=== PATIENT | male | born 1940 | race Caucasian/White ===

== ENCOUNTER 2020-12-14 08:56 | Inpatient (IN) ==
[2020-12-14 09:46] LABS: Hemoglobin 6.2 g/dL (12.9-16.9); Nucleated Red Blood Cells 0.5 /100 WBC (0)
[2020-12-14 09:47] LABS: Eosinophils # 0.2 K/mcL (0.0-0.6); Hematocrit 23.1 % (37.5-50.1); Mean Corpuscular HGB Conc 26.8 g/dL (31.6-35.5); Mean Corpuscular Hemoglobin 18.2 pg (28.0-33.3); Mean Corpuscular Volume 67.7 fL (83.0-100.0); Mean Platelet Volume 9.7 fL (9.4-12.4); Platelet Count 308 K/mcL (140-400); Red Blood Count 3.41 M/mcL (4.19-5.50); Red Cell Distribution Width 18.1 % (11.5-14.5); White Blood Count 7.4 K/mcL (4.3-11.1)
[2020-12-14 09:53] LABS: INR 1.1; Prothrombin Time 12.7 Seconds (9.4-12.1)
[2020-12-14 09:55] LABS: Activated Partial Thrombo Time 27.4 Seconds (26.0-36.0)
[2020-12-14 10:05] LABS: BUN/Creatinine Ratio 18 (6-26); Blood Urea Nitrogen 21 mg/dL (8-23); Calcium 9.1 mg/dL (8.6-10.3); Carbon Dioxide 31 mEq/L (23-29); Chloride 100 mEq/L (98-107); Glucose 130 mg/dL (70-105); Osmolality,Calculated 287 (280-300); Potassium 4.1 mEq/L (3.5-5.1); Sodium 136 mEq/L (136-145); eGFR For African Americans > 60 (> 60); eGFR For Non-African Americans 59 (> 60)
[2020-12-14 10:17] LABS: Basophils # 0.4 K/mcL (0.0-0.2); Lymphocytes # 0.9 K/mcL (0.6-4.6); Monocytes # 0.4 K/mcL (0.0-1.3); Neutrophils # 4.6 K/mcL (1.6-8.9)
[2020-12-14 10:18] LABS: Anisocytosis 2+ (Not Present); Platelet Estimate Normal (Normal); Stomatocytes 1+ (Not Present)
[2020-12-14] MEDS ORDERED: Pantoprazole 80 MG in 0.9 % Sodium Chloride 50 ML IVPB ONE (10:28)
[2020-12-14] MEDS ORDERED: 0.9 % Sodium Chloride 1,000 ML IVC ONE (10:28)
[2020-12-14] MEDS ORDERED: Ondansetron 4 MG/2 ML VIAL IVP PRN (10:49)
[2020-12-14] MEDS ORDERED: Naloxone 0.4 MG/ML INJ IVP PRN (10:49)
[2020-12-14] MEDS: 0.9 % Sodium Chloride 1,000 ML IVC SCH (16:02)
[2020-12-14 16:24] LABS: Hematocrit 24.1 % (37.5-50.1); Hemoglobin 6.7 g/dL (12.9-16.9)
[2020-12-14] MEDS: Pantoprazole 40 MG VIAL IVP SCH (16:50)
[2020-12-15] MEDS: Pantoprazole 40 MG VIAL IVP SCH ×2 (05:37→17:55)
[2020-12-15 06:51] LABS: Mean Corpuscular Volume 70.9 fL (83.0-100.0); Mean Platelet Volume 9.5 fL (9.4-12.4)
[2020-12-15 06:52] LABS: Basophils % 0.5 %; Eosinophils # 0.2 K/mcL (0.0-0.6); Eosinophils % 2.6 %; Hematocrit 24.9 % (37.5-50.1); Hemoglobin 6.7 g/dL (12.9-16.9); Immature Granulocytes % 2.7 % (0-4); Lymphocytes # 1.2 K/mcL (0.6-4.6); Lymphocytes % 13.6 %; Mean Corpuscular HGB Conc 26.9 g/dL (31.6-35.5); Mean Corpuscular Hemoglobin 19.1 pg (28.0-33.3); Monocytes # 1.1 K/mcL (0.0-1.3); Monocytes % 12.4 %; Neutrophils # 5.9 K/mcL (1.6-8.9); Nucleated Red Blood Cells 0.5 /100 WBC (0); Platelet Count 265 K/mcL (140-400); Red Blood Count 3.51 M/mcL (4.19-5.50); Segmented Neutrophils % 68.2 %; White Blood Count 8.6 K/mcL (4.3-11.1)
[2020-12-15 07:10] LABS: BUN/Creatinine Ratio 15 (6-26); Blood Urea Nitrogen 16 mg/dL (8-23); Calcium 8.3 mg/dL (8.6-10.3); Carbon Dioxide 28 mEq/L (23-29); Chloride 104 mEq/L (98-107); Glucose 125 mg/dL (70-105); Magnesium 1.9 mg/dL (1.6-2.6); Osmolality,Calculated 285 (280-300); Phosphorous 2.4 mg/dL (2.7-4.5); Potassium 4.2 mEq/L (3.5-5.1); Sodium 136 mEq/L (136-145); eGFR For African Americans > 60 (> 60); eGFR For Non-African Americans > 60 (> 60)
[2020-12-15 07:13] LABS: % Iron Saturation 4 % (20-55); Iron 17 mcg/dL (65-175); Transferrin 345 mg/dL (203-362)
[2020-12-15 07:35] LABS: Folate 9.1 ng/mL (3.0-16.0)
[2020-12-15 07:37] LABS: Ferritin < 8 ng/mL (20-250)
[2020-12-15] MEDS ORDERED: 0.9 % Sodium Chloride 250 ML IVC SCH (08:30)
[2020-12-15] MEDS ORDERED: Acetaminophen 325 MG TABLET PO SCH (11:00)
[2020-12-15] MEDS: 0.9 % Sodium Chloride 1,000 ML IVC SCH (12:00)
[2020-12-15 15:55] LABS: Hematocrit 27.8 % (37.5-50.1)
[2020-12-15] MEDS ORDERED: lisinopriL 20 MG TABLET PO SCH (18:00)
[2020-12-15] MEDS ORDERED: Melatonin 3 MG TABLET PO PRN (18:04)
[2020-12-15] MEDS ORDERED: Calcium Gluconate 1gm/50mL 1 GM/50 ML BAG IVPB ONE (19:33)
[2020-12-15] MEDS: Acetaminophen 325 MG TABLET PO PRN (19:44)
[2020-12-16 02:43] LABS: Basophils # 0.1 K/mcL (0.0-0.2); Basophils % 0.6 %; Eosinophils # 0.2 K/mcL (0.0-0.6); Hematocrit 27.5 % (37.5-50.1); Immature Granulocytes % 2.9 % (0-4); Lymphocytes # 1.2 K/mcL (0.6-4.6); Mean Corpuscular HGB Conc 29.1 g/dL (31.6-35.5); Mean Corpuscular Hemoglobin 21.1 pg (28.0-33.3); Mean Corpuscular Volume 72.6 fL (83.0-100.0); Mean Platelet Volume 9.6 fL (9.4-12.4); Monocytes # 1.5 K/mcL (0.0-1.3); Monocytes % 14.5 %; Neutrophils # 7.3 K/mcL (1.6-8.9); Nucleated Red Blood Cells 0.3 /100 WBC (0); Platelet Count 253 K/mcL (140-400); Red Blood Count 3.79 M/mcL (4.19-5.50); Red Cell Distribution Width 21.4 % (11.5-14.5); White Blood Count 10.6 K/mcL (4.3-11.1)
[2020-12-16] MEDS: Pantoprazole 40 MG VIAL IVP SCH (05:21)
[2020-12-16] MEDS: Acetaminophen 325 MG TABLET PO PRN (05:25)
[2020-12-17 07:15] VITALS: BP 157/86; PULSE 82; TEMP 97.6; O2SAT 97
== END 2020-12-16 10:24 | disposition home or self-care (01) | DRG 812 ==
LOC: EMEROOARM 08:56 → 3BNU 08:56 → SUATTDRO 10:52 → 3BNU 11:19
PROVIDERS: ADMIT Internal Medicine; ATTEND Internal Medicine

== ENCOUNTER 2021-12-30 15:04 | Observation (INO) ==
[2021-12-30 19:19] LABS: Nucleated Red Blood Cells 0.2 /100 WBC (0)
[2021-12-30 19:32] LABS: Basophils # 0.1 K/mcL (0.0-0.2); Basophils % 1.2 %; Eosinophils # 0.2 K/mcL (0.0-0.6); Eosinophils % 2.2 %; Hematocrit 39.9 % (37.5-50.1); Hemoglobin 13.1 g/dL (12.9-16.9); Immature Granulocytes % 5.2 % (0-4); Lymphocytes # 1.3 K/mcL (0.6-4.6); Lymphocytes % 14.8 %; Mean Corpuscular HGB Conc 32.8 g/dL (31.6-35.5); Mean Corpuscular Hemoglobin 30.7 pg (28.0-33.3); Mean Corpuscular Volume 93.4 fL (83.0-100.0); Mean Platelet Volume 9.9 fL (9.4-12.4); Monocytes % 11.3 %; Neutrophils # 5.6 K/mcL (1.6-8.9); Platelet Count 265 K/mcL (140-400); Red Blood Count 4.27 M/mcL (4.19-5.50); Red Cell Distribution Width 15.3 % (11.5-14.5); Segmented Neutrophils % 65.3 %; White Blood Count 8.6 K/mcL (4.3-11.1)
[2021-12-30 19:43] LABS: BUN/Creatinine Ratio 17 (6-26); Blood Urea Nitrogen 17 mg/dL (8-23); Calcium 9.5 mg/dL (8.6-10.3); Carbon Dioxide 31 mEq/L (23-29); Chloride 95 mEq/L (98-107); Glucose 167 mg/dL (70-105); Osmolality,Calculated 285 (280-300); Potassium 3.8 mEq/L (3.5-5.1); Sodium 135 mEq/L (136-145); Troponin I < 0.03 ng/mL (< 0.04)
[2021-12-30 19:57] LABS: Platelet Estimate Normal (Normal)
[2021-12-30] MEDS ORDERED: Aspirin 325 MG TABLET PO ONE (21:29)
[2021-12-30] MEDS ORDERED: Ondansetron ODT 4 MG TAB.RAPDIS SL PRN (21:36)
[2021-12-30] MEDS ORDERED: Acetaminophen 325 MG TABLET PO PRN (21:36)
[2021-12-30] MEDS ORDERED: Naloxone 0.4 MG/ML INJ IVP PRN (21:36)
[2021-12-30] MEDS ORDERED: MOM Conc 10 ML UD.LIQ PO PRN (21:36)
[2021-12-30] MEDS ORDERED: Nitroglycerin 0.4 MG TAB.SUBL SL PRN (21:39)
[2021-12-30 22:47] VITALS: TEMP 98.1
[2021-12-31 01:31] LABS: Hematocrit 35.4 % (37.5-50.1); Hemoglobin 11.6 g/dL (12.9-16.9); Mean Corpuscular HGB Conc 32.8 g/dL (31.6-35.5); Mean Corpuscular Hemoglobin 30.9 pg (28.0-33.3); Mean Corpuscular Volume 94.1 fL (83.0-100.0); Mean Platelet Volume 9.7 fL (9.4-12.4); Platelet Count 218 K/mcL (140-400); Red Blood Count 3.76 M/mcL (4.19-5.50); Red Cell Distribution Width 15.1 % (11.5-14.5); White Blood Count 8.6 K/mcL (4.3-11.1)
[2021-12-31 01:53] LABS: BUN/Creatinine Ratio 17 (6-26); Blood Urea Nitrogen 18 mg/dL (8-23); Calcium 8.8 mg/dL (8.6-10.3); Carbon Dioxide 30 mEq/L (23-29); Chloride 96 mEq/L (98-107); Cholesterol 135 mg/dL (< 200); Glucose 265 mg/dL (70-105); HDL Cholesterol 27 mg/dL (40-59); Osmolality,Calculated 287 (280-300); Phosphorous 2.9 mg/dL (2.7-4.5); Potassium 3.7 mEq/L (3.5-5.1); Sodium 133 mEq/L (136-145); Triglycerides 422 mg/dL (< 150)
[2021-12-31 02:06] LABS: Thyroid Stimulating Hormone 0.676 mcIU/mL (0.340-5.600)
[2021-12-31 03:20] VITALS: BP 123/52; PULSE 58; O2SAT 98
[2021-12-31 05:30] LABS: Estimated Average Glucose 160 mg/dl; Hemoglobin A1C 7.2 %
[2021-12-31] MEDS ORDERED: Regadenoson 0.4 MG/5 ML SYRINGE IVP ONE (06:24)
[2021-12-31] MEDS ORDERED: Aspirin 81 MG TAB.CHEW PO SCH (09:00)
== END 2021-12-31 11:18 | disposition home or self-care (01) ==
LOC: EMEROOARM 15:04 → 3BNU 15:04 → SUATTDRO 21:38 → 3BNU 22:17
PROVIDERS: ADMIT Internal Medicine; ATTEND Registered Nurse